=== PATIENT | male | born 1940 | race African-American/Black ===

== ENCOUNTER 2023-04-25 00:33 | Emergency (ER) | payer MEDICAID, MEDICARE ==
[~2023-04-25] VITALS: Ht 182.9 cm; Wt 65.0 kg
[2023-04-25 00:44] VITALS: BP 131/87; PULSE 78; RESP 12; TEMP 98.5; O2SAT 99
[2023-04-25] MEDS ORDERED: GABA-532 PO (15:33)
[2023-04-25] MEDS ORDERED: ALBU18HF2 IH (15:33)
== END 2023-04-25 03:54 | disposition left against medical advice (07) ==
LOC: ER 02:01
DX: R41.0 Disorientation, unspecified (principal); Z53.21 Procedure and treatment not carried out due to patient leaving prior to being seen by health care provider
CPT/HCPCS: 82962; 99281